=== PATIENT | male | born 1990 | race Caucasian/White ===

== ENCOUNTER 2023-04-18 21:07 | Emergency (ER) | payer OTHER ==
[~2023-04-18] VITALS: Ht 175.3 cm; Wt 65.0 kg
[2023-04-18 21:11] VITALS: BP 118/70; O2SAT 100
[2023-04-18] MEDS ORDERED: SULF1TAB47 MT (22:29)
[2023-04-18 23:15] VITALS: PULSE 64; RESP 18; TEMP 98.6
== END 2023-04-18 23:15 | disposition home or self-care (01) ==
LOC: ER 21:22
DX: S61.211A Laceration without foreign body of left index finger without damage to nail, initial encounter (principal); W27.8XXA Contact with other nonpowered hand tool, initial encounter; Y93.89 Activity, other specified; Y92.89 Other specified places as the place of occurrence of the external cause; Y99.0 Civilian activity done for income or pay
CPT/HCPCS: 12001; 99283; Z7610 ×2

== ENCOUNTER 2023-04-29 10:01 | Emergency (ER) | payer OTHER ==
[~2023-04-29] VITALS: Ht 177.8 cm; Wt 74.0 kg
[~2023-04-29 10:01] MED LIST: SULF1TAB47 MT
[2023-04-29 10:02] VITALS: O2SAT 100
[2023-04-29 14:09] VITALS: BP 134/87; PULSE 68; RESP 20; TEMP 98.5
== END 2023-04-29 14:10 | disposition home or self-care (01) ==
LOC: ER 10:01
DX: S61.211D Laceration without foreign body of left index finger without damage to nail, subsequent encounter (principal); Z88.0 Allergy status to penicillin; X58.XXXD Exposure to other specified factors, subsequent encounter
CPT/HCPCS: 99281